=== PATIENT | male | born 1960 | race Caucasian/White ===

== ENCOUNTER 2016-10-26 13:33 | Inpatient (IN) | payer BC ==
[2016-10-26] VITALS (200 sets, daily range): BP systolic 94–120; BP diastolic 67–77; PULSE 68–91; TEMP 97.8–97.9; O2SAT 87–97
[~2016-10-26] VITALS: Ht 175.3 cm; Wt 85.2 kg
[~2016-10-26 13:33] MED LIST: ATORVASTATIN; FOSAMAX PO; LIPITOR20 MG PO; LISINOPRIL10 MG PO; NORCO 325 MG-51 TAB PO; OMEGA-3 FISH1200 MG PO; PERCOCET 325 MG1 TA2 PO; PREDNISONE10 MG; RYZOLT100 MG PO
[2016-10-26] MEDS ORDERED: PRINIVIL5 MG PO (14:02)
[2016-10-26] MEDS ORDERED: OMEGA-3 FISH1000 MG PO (14:03)
[2016-10-26 14:11] LABS: BASO # 0.1 (0.0-0.2); BASO % 0.5 % (0.0-2.0); EOS # 0.2 (0.0-0.7); EOS % 2.2 % (0-4.0); GRAN # 6.7 (1.4-6.5); GRAN % 68.1 % (42.2-75.2); HEMATOCRIT 48.5 % (42.0-52.0); HEMOGLOBIN 16.7 g/dl (13.5-18.0); LYMPH # 2.1 (1.2-3.4); LYMPH % 21.5 % (20.0-51.0); MEAN CELL VOLUME 95 fl (80.0-100.0); MEAN CORPUSCULAR HEMOGLOBIN 33 pg (27.0-31.0); MEAN CORPUSCULAR HGB CONC 34 g/dl (33.0-37.0); MEAN PLATELET VOLUME 11.2 fl (7.4-10.4); MONO # 0.7 (0.1-0.6); MONO % 7.3 % (1.7-9.3); PLATELET COUNT 154 K/mm3 (130-400); REDCELL DISTRIBUTION WIDTH-CV 13.2 % (11.5-14.5); WHITE BLOOD COUNT 9.9 K/mm3 (4.8-10.8)
[2016-10-26 14:35] LABS: ADJUSTED CALCIUM 9.7 mg/dL (8.4-10.2); ALBUMIN 4.3 gm/dL (3.5-5.0); BILIRUBIN,TOTAL 0.7 mg/dL (0.0-1.0); CALCIUM 9.9 mg/dL (8.4-10.2); CREATININE, serum 1.53 mg/dL (0.66-1.25); POTASSIUM 4.4 mmol/L (3.4-5.0); TOTAL PROTEIN 7.6 gm/dL (6.4-8.2)
[2016-10-26] MEDS ORDERED: CALCIUM 600 PLU1 TAB PO (16:11)
[2016-10-26] MEDS ORDERED: VITAMIN D31000 I1 PO (16:11)
[2016-10-27] VITALS (380 sets, daily range): BP systolic 101–135; BP diastolic 68–79; PULSE 85–104; TEMP 98–98.9; O2SAT 80–97
[2016-10-27 06:43] LABS: CALCIUM 8.6 mg/dL (8.4-10.2); CREATININE, serum 2.18 mg/dL (0.66-1.25); POTASSIUM 5.1 mmol/L (3.4-5.0)
[2016-10-27 06:44] LABS: BASO % 0.3 % (0.0-2.0); EOS % 0.1 % (0-4.0); GRAN # 12.3 (1.4-6.5); GRAN % 83.4 % (42.2-75.2); HEMATOCRIT 43.7 % (42.0-52.0); LYMPH % 6.5 % (20.0-51.0); MEAN CELL VOLUME 98 fl (80.0-100.0); MEAN CORPUSCULAR HEMOGLOBIN 33 pg (27.0-31.0); MEAN CORPUSCULAR HGB CONC 34 g/dl (33.0-37.0); MEAN PLATELET VOLUME 11.5 fl (7.4-10.4); MONO # 1.4 (0.1-0.6); MONO % 9.4 % (1.7-9.3); PLATELET COUNT 153 K/mm3 (130-400); RED BLOOD COUNT 4.45 M/mm3 (4.20-5.60); REDCELL DISTRIBUTION WIDTH-CV 13.7 % (11.5-14.5); WHITE BLOOD COUNT 14.8 K/mm3 (4.8-10.8)
[2016-10-27 06:52] LABS: HEMOGLOBIN 14.7 g/dl (13.5-18.0)
[2016-10-27 15:52] LABS: PH 5 (5-8); SQUAMOUS EPITHELIAL 0-2 /hpf; URINE APPEARANCE Hazy; URINE BACTERIA None Seen /hpf; URINE BILIRUBIN Negative (NEGATIVE); URINE BLOOD Negative (NEGATIVE); URINE COLOR Yellow; URINE GLUCOSE Negative (NEGATIVE); URINE KETONE Negative (NEGATIVE); URINE UROBILINOGEN Negative (NEGATIVE)
[2016-10-28] VITALS (70 sets, daily range): BP systolic 119–141; BP diastolic 62–80; PULSE 83–117; TEMP 98.2–99.3; O2SAT 85–96
[2016-10-28 07:03] LABS: HEMATOCRIT 41.8 % (42.0-52.0); HEMOGLOBIN 14.1 g/dl (13.5-18.0); MEAN CELL VOLUME 97 fl (80.0-100.0); MEAN CORPUSCULAR HEMOGLOBIN 33 pg (27.0-31.0); MEAN CORPUSCULAR HGB CONC 34 g/dl (33.0-37.0); PLATELET COUNT 136 K/mm3 (130-400); RED BLOOD COUNT 4.32 M/mm3 (4.20-5.60); REDCELL DISTRIBUTION WIDTH-CV 13.5 % (11.5-14.5); WHITE BLOOD COUNT 13.2 K/mm3 (4.8-10.8)
[2016-10-28 07:19] LABS: CALCIUM 8.8 mg/dL (8.4-10.2); CREATININE, serum 1.55 mg/dL (0.66-1.25); POTASSIUM 4.1 mmol/L (3.4-5.0)
[2016-10-28 07:29] LABS: PHOSPHOROUS 2.9 mg/dL (2.5-4.5)
[2016-10-28 21:53] LABS: PROT-CREAT RATIO, URINE 0.2 (())
[2016-10-28 23:28] LABS: BASO % 0.3 % (0.0-2.0); EOS # 0.1 (0.0-0.7); EOS % 1.1 % (0-4.0); GRAN # 9.1 (1.4-6.5); GRAN % 78.3 % (42.2-75.2); HEMATOCRIT 40.6 % (42.0-52.0); HEMOGLOBIN 14.1 g/dl (13.5-18.0); LYMPH # 1.3 (1.2-3.4); LYMPH % 10.7 % (20.0-51.0); MEAN CELL VOLUME 94 fl (80.0-100.0); MEAN CORPUSCULAR HEMOGLOBIN 33 pg (27.0-31.0); MEAN CORPUSCULAR HGB CONC 35 g/dl (33.0-37.0); MEAN PLATELET VOLUME 10.9 fl (7.4-10.4); MONO # 1.1 (0.1-0.6); MONO % 9.3 % (1.7-9.3); PLATELET COUNT 129 K/mm3 (130-400); REDCELL DISTRIBUTION WIDTH-CV 13.4 % (11.5-14.5); WHITE BLOOD COUNT 11.7 K/mm3 (4.8-10.8)
[2016-10-28 23:36] LABS: ANION GAP 8 mmol/L (7-16); BLOOD UREA NITROGEN 23 mg/dL (9-20); CALCIUM 9.3 mg/dL (8.4-10.2); CARBON DIOXIDE 28 mmol/L (22-30); CHLORIDE 101 mmol/L (98-107); CREATININE, serum 1.22 mg/dL (0.66-1.25); GLUCOSE 119 mg/dL (74-106); POTASSIUM 3.7 mmol/L (3.4-5.0); SODIUM 136 mmol/L (137-145)
[2016-10-28 23:42] LABS: PARTIAL THROMBOPLASTIN TIME 29.7 SECONDS (26.0-37.0)
[2016-10-28 23:48] LABS: TROPONIN-I < 0.012 ng/mL (0.000-0.034)
[2016-10-29] VITALS (769 sets, daily range): BP systolic 98–136; BP diastolic 70–96; PULSE 98–125; TEMP 97.7–983.1; O2SAT 77–100
[2016-10-29 06:27] LABS: HEMATOCRIT 39.2 % (42.0-52.0); HEMOGLOBIN 13.4 g/dl (13.5-18.0)
[2016-10-29 12:28] LABS: HEMOGLOBIN 12.6 g/dl (13.5-18.0)
[2016-10-29 12:33] LABS: HEMATOCRIT 36.3 % (42.0-52.0)
[2016-10-29 17:29] LABS: HEMATOCRIT 33.7 % (42.0-52.0); HEMOGLOBIN 11.7 g/dl (13.5-18.0)
[2016-10-29 23:39] LABS: HEMATOCRIT 33.1 % (42.0-52.0); HEMOGLOBIN 11.4 g/dl (13.5-18.0)
[2016-10-30] VITALS (506 sets, daily range): BP systolic 101–138; BP diastolic 52–86; PULSE 91–139; TEMP 98.2–99.5; O2SAT 82–100
[2016-10-30 05:00] LABS: MEAN CELL VOLUME 96 fl (80.0-100.0); MEAN CORPUSCULAR HGB CONC 35 g/dl (33.0-37.0); PLATELET COUNT 135 K/mm3 (130-400); REDCELL DISTRIBUTION WIDTH-CV 13.4 % (11.5-14.5); WHITE BLOOD COUNT 14.9 K/mm3 (4.8-10.8)
[2016-10-30 05:02] LABS: HEMATOCRIT 31.5 % (42.0-52.0); HEMOGLOBIN 10.9 g/dl (13.5-18.0); MEAN CORPUSCULAR HEMOGLOBIN 33 pg (27.0-31.0)
[2016-10-30 05:03] LABS: ADD PATHOLOGY DIFF REVIEW NO
[2016-10-30 05:11] LABS: CALCIUM 8.4 mg/dL (8.4-10.2); CREATININE, serum 1.33 mg/dL (0.66-1.25); POTASSIUM 4.2 mmol/L (3.4-5.0)
[2016-10-30 05:17] LABS: BAND 11 % (0-10); BASOPHIL 1 % (0-2); EOSINOPHIL 1 % (0-4); NEUTROPHILS 70 % (42.0-75.2); PLATELET ESTIMATE NORMAL (NORMAL); TOTAL CELLS COUNTED 100
[2016-10-31] VITALS (9 sets, daily range): BP systolic 111–133; BP diastolic 68–83; PULSE 98–107; TEMP 97.9–99.2
[2016-10-31 06:17] LABS: MEAN CELL VOLUME 97 fl (80.0-100.0); MEAN CORPUSCULAR HGB CONC 35 g/dl (33.0-37.0); MEAN PLATELET VOLUME 11.2 fl (7.4-10.4); PLATELET COUNT 151 K/mm3 (130-400); RED BLOOD COUNT 3.05 M/mm3 (4.20-5.60); REDCELL DISTRIBUTION WIDTH-CV 13.5 % (11.5-14.5); WHITE BLOOD COUNT 12.7 K/mm3 (4.8-10.8)
[2016-10-31 06:19] LABS: HEMATOCRIT 29.6 % (42.0-52.0); HEMOGLOBIN 10.2 g/dl (13.5-18.0); MEAN CORPUSCULAR HEMOGLOBIN 33 pg (27.0-31.0)
[2016-10-31 06:26] LABS: ADJUSTED CALCIUM 9.5 mg/dL (8.4-10.2); ALBUMIN 2.9 gm/dL (3.5-5.0); BILIRUBIN,TOTAL 0.9 mg/dL (0.0-1.0); CALCIUM 8.6 mg/dL (8.4-10.2); CREATININE, serum 1.3 mg/dL (0.66-1.25); POTASSIUM 3.9 mmol/L (3.4-5.0); TOTAL PROTEIN 5.8 gm/dL (6.4-8.2)
[2016-11-01] VITALS (638 sets, daily range): BP systolic 106–129; BP diastolic 66–83; PULSE 85–107; TEMP 97.6–97.9; O2SAT 83–100
[2016-11-01 06:10] LABS: MEAN CELL VOLUME 95 fl (80.0-100.0); MEAN CORPUSCULAR HGB CONC 34 g/dl (33.0-37.0); MEAN PLATELET VOLUME 10.7 fl (7.4-10.4); PLATELET COUNT 187 K/mm3 (130-400); RED BLOOD COUNT 3.23 M/mm3 (4.20-5.60); REDCELL DISTRIBUTION WIDTH-CV 13.5 % (11.5-14.5); WHITE BLOOD COUNT 13.1 K/mm3 (4.8-10.8)
[2016-11-01 06:15] LABS: HEMATOCRIT 30.8 % (42.0-52.0); HEMOGLOBIN 10.5 g/dl (13.5-18.0); MEAN CORPUSCULAR HEMOGLOBIN 33 pg (27.0-31.0)
[2016-11-02] VITALS (250 sets, daily range): BP systolic 104–142; BP diastolic 57–81; PULSE 86–99; TEMP 97.4–99.5; O2SAT 84–99
[2016-11-03] VITALS (8 sets, daily range): BP systolic 115–158; BP diastolic 53–84; PULSE 71–88; TEMP 97.5–98.8
[2016-11-03 07:35] LABS: BASO % 0.3 % (0.0-2.0); EOS # 0.4 (0.0-0.7); EOS % 3.4 % (0-4.0); GRAN # 7.9 (1.4-6.5); GRAN % 72.3 % (42.2-75.2); LYMPH # 1.2 (1.2-3.4); LYMPH % 11.3 % (20.0-51.0); MEAN CELL VOLUME 96 fl (80.0-100.0); MEAN CORPUSCULAR HGB CONC 34 g/dl (33.0-37.0); MEAN PLATELET VOLUME 10.7 fl (7.4-10.4); MONO # 1.3 (0.1-0.6); MONO % 11.8 % (1.7-9.3); PLATELET COUNT 195 K/mm3 (130-400); RED BLOOD COUNT 2.96 M/mm3 (4.20-5.60); REDCELL DISTRIBUTION WIDTH-CV 13.4 % (11.5-14.5); WHITE BLOOD COUNT 10.9 K/mm3 (4.8-10.8)
[2016-11-03 08:00] LABS: CALCIUM 8.1 mg/dL (8.4-10.2); CREATININE, serum 1.11 mg/dL (0.66-1.25); POTASSIUM 3.5 mmol/L (3.4-5.0)
[2016-11-03 08:48] LABS: HEMATOCRIT 28.3 % (42.0-52.0); HEMOGLOBIN 9.6 g/dl (13.5-18.0); MEAN CORPUSCULAR HEMOGLOBIN 32 pg (27.0-31.0)
[2016-11-03] MEDS ORDERED: MULTI VITAMINS1 TAB PO (18:08)
[2016-11-03] MEDS ORDERED: VITAMIN D 1001000 IU PO (18:08)
[2016-11-04] VITALS (9 sets, daily range): BP systolic 119–149; BP diastolic 63–90; PULSE 78–92; TEMP 97.8–98.7
[2016-11-05] VITALS (15 sets, daily range): BP systolic 12–142; BP diastolic 63–76; PULSE 80–94; TEMP 97.4–99.1
[2016-11-05 13:45] LABS: HEMATOCRIT 31.6 % (42.0-52.0); HEMOGLOBIN 10.6 g/dl (13.5-18.0)
[2016-11-06] VITALS (7 sets, daily range): BP systolic 107–154; BP diastolic 50–68; PULSE 64–98; TEMP 97.2–98.6
[2016-11-06 07:07] LABS: MEAN CELL VOLUME 96 fl (80.0-100.0); MEAN CORPUSCULAR HGB CONC 33 g/dl (33.0-37.0); MEAN PLATELET VOLUME 10.2 fl (7.4-10.4); PLATELET COUNT 270 K/mm3 (130-400); RED BLOOD COUNT 3.17 M/mm3 (4.20-5.60); REDCELL DISTRIBUTION WIDTH-CV 13.3 % (11.5-14.5); WHITE BLOOD COUNT 17.9 K/mm3 (4.8-10.8)
[2016-11-06 07:26] LABS: ADD PATHOLOGY DIFF REVIEW NO; HEMATOCRIT 30.3 % (42.0-52.0); HEMOGLOBIN 10.1 g/dl (13.5-18.0); MEAN CORPUSCULAR HEMOGLOBIN 32 pg (27.0-31.0)
[2016-11-06 07:36] LABS: CALCIUM 8.1 mg/dL (8.4-10.2); CREATININE, serum 1.24 mg/dL (0.66-1.25); POTASSIUM 4.1 mmol/L (3.4-5.0)
[2016-11-06 10:31] LABS: BAND 3 % (0-10); EOSINOPHIL 1 % (0-4); NEUTROPHILS 84 % (42.0-75.2); TOTAL CELLS COUNTED 100
[2016-11-07] VITALS (7 sets, daily range): BP systolic 101–136; BP diastolic 56–71; PULSE 64–98; TEMP 97.5–99.4
[2016-11-08 02:15] VITALS: BP 128/66; PULSE 82; TEMP 97.2
[2016-11-08 05:15] VITALS: BP 128/70; PULSE 76; TEMP 99.1
[2016-11-08 07:28] LABS: BASO # 0.1 (0.0-0.2); BASO % 0.4 % (0.0-2.0); EOS # 0.4 (0.0-0.7); EOS % 2.9 % (0-4.0); GRAN # 10.1 (1.4-6.5); GRAN % 73.2 % (42.2-75.2); LYMPH # 1.8 (1.2-3.4); MEAN CELL VOLUME 97 fl (80.0-100.0); MEAN CORPUSCULAR HGB CONC 33 g/dl (33.0-37.0); MEAN PLATELET VOLUME 10.1 fl (7.4-10.4); MONO # 1.2 (0.1-0.6); MONO % 8.6 % (1.7-9.3); PLATELET COUNT 212 K/mm3 (130-400); RED BLOOD COUNT 3.38 M/mm3 (4.20-5.60); REDCELL DISTRIBUTION WIDTH-CV 13.7 % (11.5-14.5); WHITE BLOOD COUNT 13.8 K/mm3 (4.8-10.8)
[2016-11-08 07:51] LABS: HEMATOCRIT 32.7 % (42.0-52.0); HEMOGLOBIN 10.9 g/dl (13.5-18.0); MEAN CORPUSCULAR HEMOGLOBIN 32 pg (27.0-31.0)
[2016-11-08 10:00] VITALS: BP 129/75; PULSE 80; TEMP 97.2
[2016-11-08 14:05] VITALS: BP 121/57; PULSE 96; TEMP 98
[2016-11-08 17:51] VITALS: BP 109/56; PULSE 84; TEMP 97.9
[2016-11-08 21:27] VITALS: BP 120/68; PULSE 94; TEMP 98.1
[2016-11-09 01:25] VITALS: BP 105/59; PULSE 75; TEMP 98.2
[2016-11-09 05:53] VITALS: BP 118/69; PULSE 85; TEMP 97.5
[2016-11-09 10:00] VITALS: BP 103/58; PULSE 88; TEMP 98.8
[2016-11-09 14:25] VITALS: BP 99/53; PULSE 90; TEMP 97.9
[2016-11-09 18:20] VITALS: BP 103/49; PULSE 89; TEMP 99.7
[2016-11-09 22:15] VITALS: BP 100/48; PULSE 100; TEMP 98.9
[2016-11-10 01:15] VITALS: BP 107/53; PULSE 95; TEMP 99.9
[2016-11-10 05:25] VITALS: BP 110/56; PULSE 98; TEMP 98.9
[2016-11-10 07:46] LABS: MEAN CELL VOLUME 97 fl (80.0-100.0); MEAN CORPUSCULAR HGB CONC 33 g/dl (33.0-37.0); MEAN PLATELET VOLUME 10.3 fl (7.4-10.4); PLATELET COUNT 230 K/mm3 (130-400); RED BLOOD COUNT 3.55 M/mm3 (4.20-5.60)
[2016-11-10 08:08] LABS: ADD PATHOLOGY DIFF REVIEW NO; HEMATOCRIT 34.3 % (42.0-52.0); HEMOGLOBIN 11.3 g/dl (13.5-18.0); MEAN CORPUSCULAR HEMOGLOBIN 32 pg (27.0-31.0); WHITE BLOOD COUNT 24.3 K/mm3 (4.8-10.8)
[2016-11-10 09:02] LABS: BAND 6 % (0-10); BASOPHIL 1 % (0-2); NEUTROPHILS 84 % (42.0-75.2); PLATELET ESTIMATE NORMAL (NORMAL); TOTAL CELLS COUNTED 100
[2016-11-10 09:40] VITALS: BP 103/60; PULSE 95; TEMP 98.2
[2016-11-10 14:17] VITALS: BP 105/56; PULSE 96; TEMP 100.3
[2016-11-10 17:16] VITALS: BP 104/56; PULSE 96; TEMP 100.1
[2016-11-10 17:20] LABS: INR 1.3 (0.8-3.0); PROTHROMBIN TIME 14.8 SECONDS (9.7-12.8)
[2016-11-10 17:24] LABS: CREATININE, serum 1.3 mg/dL (0.66-1.25)
[2016-11-10 21:57] VITALS: BP 123/67; PULSE 80; TEMP 98.5
[2016-11-11] VITALS (11 sets, daily range): BP systolic 87–112; BP diastolic 51–72; PULSE 62–109; TEMP 98.2–99.1
[2016-11-11 07:36] LABS: MEAN CELL VOLUME 97 fl (80.0-100.0); MEAN CORPUSCULAR HGB CONC 33 g/dl (33.0-37.0); MEAN PLATELET VOLUME 10.2 fl (7.4-10.4); PLATELET COUNT 227 K/mm3 (130-400); RED BLOOD COUNT 3.33 M/mm3 (4.20-5.60); REDCELL DISTRIBUTION WIDTH-CV 13.9 % (11.5-14.5)
[2016-11-11 07:44] LABS: CALCIUM 8.2 mg/dL (8.4-10.2); CREATININE, serum 1.32 mg/dL (0.66-1.25); POTASSIUM 3.9 mmol/L (3.4-5.0)
[2016-11-11 08:03] LABS: HEMATOCRIT 32.2 % (42.0-52.0); HEMOGLOBIN 10.5 g/dl (13.5-18.0); MEAN CORPUSCULAR HEMOGLOBIN 32 pg (27.0-31.0); WHITE BLOOD COUNT 24.2 K/mm3 (4.8-10.8)
[2016-11-11 08:04] LABS: ADD PATHOLOGY DIFF REVIEW NO
[2016-11-11 09:31] LABS: BAND 7 % (0-10); EOSINOPHIL 1 % (0-4); MYELOCYTE 1 % (0-0); NEUTROPHILS 78 % (42.0-75.2); PLATELET ESTIMATE NORMAL (NORMAL)
[2016-11-11 09:36] LABS: ANISOCYTOSIS 1+; POLYCHROMASIA 1+; TOXIC GRANULATION PRESENT
[2016-11-11 09:37] LABS: TOTAL CELLS COUNTED 100
[2016-11-12 02:00] VITALS: BP 103/55; PULSE 83; TEMP 97.8
[2016-11-12 06:17] VITALS: BP 110/61; PULSE 81; TEMP 97.7
[2016-11-12 09:06] LABS: MEAN CELL VOLUME 96 fl (80.0-100.0); MEAN CORPUSCULAR HGB CONC 33 g/dl (33.0-37.0); MEAN PLATELET VOLUME 10.2 fl (7.4-10.4); PLATELET COUNT 248 K/mm3 (130-400); RED BLOOD COUNT 3.33 M/mm3 (4.20-5.60); REDCELL DISTRIBUTION WIDTH-CV 13.8 % (11.5-14.5); WHITE BLOOD COUNT 18.4 K/mm3 (4.8-10.8)
[2016-11-12 09:07] VITALS: BP 100/55; PULSE 50; TEMP 98
[2016-11-12 09:08] LABS: ADD PATHOLOGY DIFF REVIEW NO; HEMATOCRIT 31.9 % (42.0-52.0); HEMOGLOBIN 10.4 g/dl (13.5-18.0); MEAN CORPUSCULAR HEMOGLOBIN 31 pg (27.0-31.0)
[2016-11-12 09:20] LABS: CALCIUM 8.8 mg/dL (8.4-10.2); CREATININE, serum 1.3 mg/dL (0.66-1.25); POTASSIUM 4.1 mmol/L (3.4-5.0)
[2016-11-12 09:41] LABS: METAMYELOCYTE 2 % (0-0); NEUTROPHILS 88 % (42.0-75.2); TOTAL CELLS COUNTED 100
[2016-11-12 13:42] VITALS: BP 94/56; PULSE 90; TEMP 98.2
[2016-11-12 17:33] VITALS: BP 110/55; PULSE 93; TEMP 98.8
[2016-11-12 22:19] VITALS: BP 115/64; PULSE 76; TEMP 98.5
[2016-11-13 05:47] VITALS: BP 117/62; PULSE 88; TEMP 98.6
[2016-11-13 10:00] VITALS: BP 106/52; PULSE 88; TEMP 98.2
[2016-11-13] MEDS ORDERED: ASPIRIN 32325 MG/TAB PO (11:29)
[2016-11-13] MEDS ORDERED: CORDARONE200 MG/TAB PO (11:36)
[2016-11-13] MEDS ORDERED: COLACE 100100 MG/CAP PO (11:37)
[2016-11-13] MEDS ORDERED: NORCO 325 MG-7.1 TAB PO (11:38)
[2016-11-13] MEDS ORDERED: PACERONE400 MG PO (12:14)
[2016-11-13 12:56] VITALS: BP 108/58; PULSE 93; TEMP 98.5
== END 2016-11-13 15:00 | disposition home or self-care (01) | DRG 163 ==
LOC: COL.ER 13:33 → ICU 15:37 → SURG 15:37 → IMCU 10-28 22:20 → SURG 10-31 12:40 → ICU 11-01 02:19 → SURG 11-02 12:39
PROVIDERS: Emergency Medicine; Internal Medicine Nephrology; Nurse Anesthetist, Certified Registered; Nurse Practitioner Family; Physician Assistant; Radiology Diagnostic Radiology; Surgery
PROC: 0BCN0ZZ Extirpation of Matter from Right Pleura, Open Approach (ICD-10-PCS; 2016-11-01)
PROC: 0W9900Z Drainage of Right Pleural Cavity with Drainage Device, Open Approach (ICD-10-PCS; 2016-11-01)
PROC: 0BQS4ZZ (ICD-10-PCS; 2016-11-05)
PROC: 0BNN4ZZ Release Right Pleura, Percutaneous Endoscopic Approach (ICD-10-PCS; principal; 2016-11-05 10:00)
PROC: 06H03DZ Insertion of Intraluminal Device into Inferior Vena Cava, Percutaneous Approach (ICD-10-PCS; 2016-11-11)
DX: S22.41XA Multiple fractures of ribs, right side, initial encounter for closed fracture (principal); S27.2XXA Traumatic hemopneumothorax, initial encounter; I26.99 Other pulmonary embolism without acute cor pulmonale; S27.321A Contusion of lung, unilateral, initial encounter; N02.8 Recurrent and persistent hematuria with other morphologic changes; N17.9 Acute kidney failure, unspecified; S27.803A Laceration of diaphragm, initial encounter; J98.11 Atelectasis; D62 Acute posthemorrhagic anemia; V23.4XXA Motorcycle driver injured in collision with car, pick-up truck or van in traffic accident, initial encounter; S42.111A Displaced fracture of body of scapula, right shoulder, initial encounter for closed fracture; I12.9 Hypertensive chronic kidney disease with stage 1 through stage 4 chronic kidney disease, or unspecified chronic kidney disease; N18.3 Chronic kidney disease, stage 3 (moderate); I48.0 Paroxysmal atrial fibrillation
CPT/HCPCS: 99222; 99231-AI; 99232-AI; A7048; A9284; C1751; C1880; J0282; J1100; J1170; J1644; J2250; J2270; J2405; J2704; J3010; J7030; J7050; J7060; Q9967

== ENCOUNTER 2016-11-19 23:55 | Inpatient (IN) | payer BC ==
[~2016-11-19] VITALS: Ht 175.3 cm; Wt 85.2 kg
[~2016-11-19 23:55] MED LIST changes: +ASPIRIN 32325 MG/TAB PO; +CALCIUM 600 PLU1 TAB PO; +COLACE 100100 MG/CAP PO; +CORDARONE200 MG/TAB PO; +MULTI VITAMINS1 TAB PO; +NORCO 325 MG-7.1 TAB PO; +OMEGA-3 FISH1000 MG PO; +PACERONE400 MG PO; +PRINIVIL5 MG PO; +VITAMIN D 1001000 IU PO; +VITAMIN D31000 I1 PO
[2016-11-20 00:52] LABS: BASO # 0.1 (0.0-0.2); BASO % 0.4 % (0.0-2.0); EOS # 0.2 (0.0-0.7); EOS % 1.9 % (0-4.0); GRAN # 9.4 (1.4-6.5); GRAN % 79.5 % (42.2-75.2); LYMPH # 1.4 (1.2-3.4); MEAN CELL VOLUME 92 fl (80.0-100.0); MEAN CORPUSCULAR HGB CONC 33 g/dl (33.0-37.0); MONO # 0.6 (0.1-0.6); MONO % 5.4 % (1.7-9.3); PLATELET COUNT 370 K/mm3 (130-400); RED BLOOD COUNT 3.39 M/mm3 (4.20-5.60); WHITE BLOOD COUNT 11.8 K/mm3 (4.8-10.8)
[2016-11-20 00:57] LABS: HEMATOCRIT 31.3 % (42.0-52.0); HEMOGLOBIN 10.4 g/dl (13.5-18.0); MEAN CORPUSCULAR HEMOGLOBIN 31 pg (27.0-31.0)
[2016-11-20 01:05] LABS: ADJUSTED CALCIUM 9.2 mg/dL (8.4-10.2); ALBUMIN 3.1 gm/dL (3.5-5.0); BILIRUBIN,TOTAL 0.6 mg/dL (0.0-1.0); CALCIUM 8.5 mg/dL (8.4-10.2); CREATININE, serum 1.81 mg/dL (0.66-1.25); POTASSIUM 4.2 mmol/L (3.4-5.0); TOTAL PROTEIN 7.5 gm/dL (6.4-8.2)
[2016-11-20 01:38] LABS: C-REACTIVE PROTEIN 17.1 mg/dL (0.0-0.9)
[2016-11-20] MEDS ORDERED: VITAMIN D1000 IU PO (02:30)
[2016-11-20] MEDS ORDERED: PRINIVIL2.5 MG PO (02:30)
[2016-11-20 02:47] VITALS: BP 127/71; PULSE 82; TEMP 98.5
[2016-11-20 05:48] VITALS: BP 110/66; PULSE 78; TEMP 98.1
[2016-11-20 09:08] VITALS: BP 119/70; PULSE 84; TEMP 98.2
[2016-11-20 14:02] VITALS: BP 114/59; PULSE 54; TEMP 98.2
[2016-11-20 18:03] VITALS: BP 104/61; PULSE 93; TEMP 99.1
[2016-11-20 21:24] VITALS: BP 120/65; PULSE 82; TEMP 99
[2016-11-21 02:19] VITALS: BP 130/66; PULSE 87; TEMP 98.8
[2016-11-21 05:44] VITALS: BP 122/66; PULSE 86; TEMP 98.8
[2016-11-21 09:49] VITALS: BP 124/61; PULSE 78; TEMP 98
[2016-11-21 14:07] LABS: PH 5 (5-8); SQUAMOUS EPITHELIAL None Seen /hpf; URINE APPEARANCE Cloudy; URINE BACTERIA Rare /hpf; URINE BILIRUBIN Negative (NEGATIVE); URINE BLOOD 1+ (NEGATIVE); URINE COLOR Yellow; URINE GLUCOSE Negative (NEGATIVE); URINE KETONE Negative (NEGATIVE); URINE RBC 0-2 /hpf; URINE UROBILINOGEN Negative (NEGATIVE); URINE WBC 0-2 /hpf
[2016-11-21 14:12] VITALS: BP 125/66; PULSE 84; TEMP 98.4
[2016-11-21 15:03] LABS: BASO % 0.5 % (0.0-2.0); EOS # 0.2 (0.0-0.7); EOS % 2.4 % (0-4.0); GRAN # 6.4 (1.4-6.5); HEMATOCRIT 29.5 % (42.0-52.0); HEMOGLOBIN 9.5 g/dl (13.5-18.0); LYMPH # 1.1 (1.2-3.4); LYMPH % 12.6 % (20.0-51.0); MEAN CELL VOLUME 92 fl (80.0-100.0); MEAN CORPUSCULAR HEMOGLOBIN 30 pg (27.0-31.0); MEAN CORPUSCULAR HGB CONC 32 g/dl (33.0-37.0); MEAN PLATELET VOLUME 9.7 fl (7.4-10.4); MONO # 0.7 (0.1-0.6); MONO % 7.8 % (1.7-9.3); PLATELET COUNT 331 K/mm3 (130-400); REDCELL DISTRIBUTION WIDTH-CV 14.9 % (11.5-14.5); WHITE BLOOD COUNT 8.4 K/mm3 (4.8-10.8)
[2016-11-21 15:12] LABS: ADJUSTED CALCIUM 9.5 mg/dL (8.4-10.2); ALBUMIN 2.7 gm/dL (3.5-5.0); BILIRUBIN,TOTAL 0.5 mg/dL (0.0-1.0); CALCIUM 8.5 mg/dL (8.4-10.2); CREATININE, serum 1.45 mg/dL (0.66-1.25); POTASSIUM 4.1 mmol/L (3.4-5.0); TOTAL PROTEIN 6.9 gm/dL (6.4-8.2)
[2016-11-21 18:47] VITALS: BP 130/66; PULSE 93; TEMP 99.2
[2016-11-21 21:25] VITALS: BP 131/71; PULSE 94; TEMP 98.6
[2016-11-22 05:46] VITALS: BP 118/56; PULSE 91; TEMP 98.5
[2016-11-22 08:21] LABS: BASO % 0.4 % (0.0-2.0); EOS # 0.2 (0.0-0.7); EOS % 2.9 % (0-4.0); GRAN % 72.4 % (42.2-75.2); LYMPH # 1.3 (1.2-3.4); LYMPH % 15.3 % (20.0-51.0); MEAN CELL VOLUME 91 fl (80.0-100.0); MEAN CORPUSCULAR HGB CONC 33 g/dl (33.0-37.0); MEAN PLATELET VOLUME 9.9 fl (7.4-10.4); MONO # 0.7 (0.1-0.6); MONO % 8.4 % (1.7-9.3); PLATELET COUNT 336 K/mm3 (130-400); RED BLOOD COUNT 3.16 M/mm3 (4.20-5.60); REDCELL DISTRIBUTION WIDTH-CV 15.1 % (11.5-14.5); WHITE BLOOD COUNT 8.3 K/mm3 (4.8-10.8)
[2016-11-22 08:32] LABS: HEMATOCRIT 28.7 % (42.0-52.0); HEMOGLOBIN 9.4 g/dl (13.5-18.0); MEAN CORPUSCULAR HEMOGLOBIN 30 pg (27.0-31.0)
[2016-11-22 08:55] LABS: ADJUSTED CALCIUM 9.9 mg/dL (8.4-10.2); ALBUMIN 2.7 gm/dL (3.5-5.0); BILIRUBIN,TOTAL 0.4 mg/dL (0.0-1.0); CALCIUM 8.9 mg/dL (8.4-10.2); CREATININE, serum 1.61 mg/dL (0.66-1.25); POTASSIUM 4.1 mmol/L (3.4-5.0); TOTAL PROTEIN 6.7 gm/dL (6.4-8.2)
[2016-11-22 09:37] VITALS: BP 135/93; PULSE 87; TEMP 98
[2016-11-22 13:33] VITALS: BP 133/72; PULSE 84; TEMP 98.5
[2016-11-22 17:59] VITALS: BP 130/80; PULSE 104; TEMP 98.3
[2016-11-22 21:18] VITALS: BP 120/67; PULSE 95; TEMP 97.8
[2016-11-23 02:28] LABS: PROT-CREAT RATIO, URINE 0.3 (())
[2016-11-23 05:28] VITALS: BP 135/72; PULSE 80; TEMP 98
[2016-11-23 07:16] VITALS: BP 127/70; PULSE 80; TEMP 97.4
[2016-11-23 08:45] LABS: BASO % 0.4 % (0.0-2.0); EOS # 0.2 (0.0-0.7); EOS % 1.6 % (0-4.0); GRAN % 71.1 % (42.2-75.2); LYMPH # 1.8 (1.2-3.4); LYMPH % 17.7 % (20.0-51.0); MEAN CELL VOLUME 90 fl (80.0-100.0); MEAN CORPUSCULAR HGB CONC 33 g/dl (33.0-37.0); MONO # 0.8 (0.1-0.6); MONO % 8.4 % (1.7-9.3); PLATELET COUNT 346 K/mm3 (130-400); RED BLOOD COUNT 3.18 M/mm3 (4.20-5.60); REDCELL DISTRIBUTION WIDTH-CV 15.1 % (11.5-14.5); WHITE BLOOD COUNT 9.9 K/mm3 (4.8-10.8)
[2016-11-23 08:50] LABS: HEMATOCRIT 28.6 % (42.0-52.0); HEMOGLOBIN 9.4 g/dl (13.5-18.0); MEAN CORPUSCULAR HEMOGLOBIN 30 pg (27.0-31.0)
[2016-11-23 09:10] LABS: ADJUSTED CALCIUM 10.2 mg/dL (8.4-10.2); ALBUMIN 2.8 gm/dL (3.5-5.0); BILIRUBIN,TOTAL 0.5 mg/dL (0.0-1.0); CALCIUM 9.2 mg/dL (8.4-10.2); CREATININE, serum 1.66 mg/dL (0.66-1.25); POTASSIUM 3.8 mmol/L (3.4-5.0)
[2016-11-23 10:59] VITALS: BP 122/71; PULSE 76; TEMP 97.1
[2016-11-23] MEDS ORDERED: ZYVOX 600MG600 MG PO (13:42)
[2016-11-23] MEDS ORDERED: PREDNISONE10 MG PO (13:43)
== END 2016-11-23 14:30 | disposition home or self-care (01) | DRG 863 ==
LOC: COL.ER 23:55 → SURG 11-20 01:36
PROVIDERS: Emergency Medicine; Internal Medicine; Internal Medicine Nephrology
PROC: 0HBLXZX Excision of Left Lower Leg Skin, External Approach, Diagnostic (ICD-10-PCS; principal; 2016-11-22)
DX: T81.4XXA Infection following a procedure, initial encounter (principal); L02.213 Cutaneous abscess of chest wall; N02.8 Recurrent and persistent hematuria with other morphologic changes; N17.9 Acute kidney failure, unspecified; J90 Pleural effusion, not elsewhere classified; L95.8 Other vasculitis limited to the skin; I48.91 Unspecified atrial fibrillation; I10 Essential (primary) hypertension; B95.62 Methicillin resistant Staphylococcus aureus infection as the cause of diseases classified elsewhere
CPT/HCPCS: J0696; J1170; J1644; J3370; J7030; J7050; J7512

== ENCOUNTER 2016-12-22 15:20 | Inpatient (IN) | payer BC ==
[~2016-12-22] VITALS: Ht 175.3 cm; Wt 87.3 kg
[~2016-12-22 15:20] MED LIST changes: +PREDNISONE10 MG PO; +PRINIVIL2.5 MG PO; +VITAMIN D1000 IU PO; +ZYVOX 600MG600 MG PO
[2016-12-22 15:58] LABS: BASO % 0.5 % (0.0-2.0); EOS # 0.3 (0.0-0.7); EOS % 4.4 % (0-4.0); GRAN # 3.9 (1.4-6.5); GRAN % 58.9 % (42.2-75.2); HEMATOCRIT 37.5 % (42.0-52.0); HEMOGLOBIN 11.9 g/dl (13.5-18.0); LYMPH # 1.7 (1.2-3.4); LYMPH % 25.2 % (20.0-51.0); MEAN CELL VOLUME 93 fl (80.0-100.0); MEAN CORPUSCULAR HEMOGLOBIN 29 pg (27.0-31.0); MEAN CORPUSCULAR HGB CONC 32 g/dl (33.0-37.0); MEAN PLATELET VOLUME 10.5 fl (7.4-10.4); MONO # 0.7 (0.1-0.6); MONO % 10.7 % (1.7-9.3); PLATELET COUNT 174 K/mm3 (130-400); RED BLOOD COUNT 4.05 M/mm3 (4.20-5.60); WHITE BLOOD COUNT 6.6 K/mm3 (4.8-10.8)
[2016-12-22 16:06] LABS: CALCIUM 9.2 mg/dL (8.4-10.2); POTASSIUM 4.7 mmol/L (3.4-5.0)
[2016-12-22 16:13] LABS: CREATININE, serum 3.98 mg/dL (0.66-1.25)
[2016-12-22 17:37] VITALS: BP 119/74; PULSE 90; TEMP 97.9
[2016-12-22 22:00] LABS: PROTHROMBIN TIME 11.4 SECONDS (9.7-12.8)
[2016-12-22 22:04] LABS: CREATININE, serum 3.75 mg/dL (0.66-1.25)
[2016-12-22 22:15] LABS: FRACTIONAL EXCRETION OF NA+ 2.1 %
[2016-12-22 22:59] VITALS: BP 114/64; PULSE 86; TEMP 98.4
[2016-12-23] VITALS (11 sets, daily range): BP systolic 110–141; BP diastolic 57–81; PULSE 70–100; TEMP 97.8–98.5
[2016-12-23 08:05] LABS: BASO # 0.1 (0.0-0.2); BASO % 1.3 % (0.0-2.0); EOS # 0.4 (0.0-0.7); EOS % 7.2 % (0-4.0); GRAN # 2.4 (1.4-6.5); GRAN % 43.1 % (42.2-75.2); LYMPH # 1.9 (1.2-3.4); LYMPH % 33.4 % (20.0-51.0); MEAN CELL VOLUME 93 fl (80.0-100.0); MEAN CORPUSCULAR HGB CONC 32 g/dl (33.0-37.0); MEAN PLATELET VOLUME 10.9 fl (7.4-10.4); MONO # 0.8 (0.1-0.6); MONO % 14.3 % (1.7-9.3); PLATELET COUNT 168 K/mm3 (130-400); RED BLOOD COUNT 3.73 M/mm3 (4.20-5.60); REDCELL DISTRIBUTION WIDTH-CV 17.2 % (11.5-14.5); WHITE BLOOD COUNT 5.5 K/mm3 (4.8-10.8)
[2016-12-23 08:16] LABS: ALBUMIN 3.1 gm/dL (3.5-5.0); CALCIUM 8.9 mg/dL (8.4-10.2); CREATININE, serum 3.66 mg/dL (0.66-1.25); PHOSPHOROUS 4.6 mg/dL (2.5-4.5); POTASSIUM 4.6 mmol/L (3.4-5.0)
[2016-12-23 08:41] LABS: HEMATOCRIT 34.6 % (42.0-52.0); HEMOGLOBIN 11.1 g/dl (13.5-18.0); MEAN CORPUSCULAR HEMOGLOBIN 30 pg (27.0-31.0)
[2016-12-23 20:17] LABS: PH 6 (5-8); SQUAMOUS EPITHELIAL 0-2 /hpf; URINE APPEARANCE Hazy; URINE BACTERIA None Seen /hpf; URINE BILIRUBIN Negative (NEGATIVE); URINE BLOOD 3+ (NEGATIVE); URINE COLOR Yellow; URINE GLUCOSE Negative (NEGATIVE); URINE KETONE Negative (NEGATIVE); URINE RBC >50 /hpf; URINE UROBILINOGEN Negative (NEGATIVE)
[2016-12-23 22:08] LABS: PROT-CREAT RATIO, URINE 1.7 (())
[2016-12-24 04:56] VITALS: BP 110/62; PULSE 77; TEMP 98.2
[2016-12-24 06:58] LABS: BASO # 0.1 (0.0-0.2); BASO % 0.7 % (0.0-2.0); EOS # 0.1 (0.0-0.7); EOS % 0.8 % (0-4.0); GRAN # 4.8 (1.4-6.5); GRAN % 64.6 % (42.2-75.2); LYMPH # 1.5 (1.2-3.4); LYMPH % 20.9 % (20.0-51.0); MEAN CELL VOLUME 91 fl (80.0-100.0); MEAN CORPUSCULAR HGB CONC 32 g/dl (33.0-37.0); MEAN PLATELET VOLUME 10.7 fl (7.4-10.4); MONO # 0.9 (0.1-0.6); MONO % 12.6 % (1.7-9.3); PLATELET COUNT 187 K/mm3 (130-400); RED BLOOD COUNT 3.58 M/mm3 (4.20-5.60); REDCELL DISTRIBUTION WIDTH-CV 16.4 % (11.5-14.5); WHITE BLOOD COUNT 7.4 K/mm3 (4.8-10.8)
[2016-12-24 07:27] LABS: CALCIUM 8.4 mg/dL (8.4-10.2); CREATININE, serum 3.22 mg/dL (0.66-1.25); PHOSPHOROUS 3.9 mg/dL (2.5-4.5); POTASSIUM 4.6 mmol/L (3.4-5.0)
[2016-12-24 07:45] LABS: HEMATOCRIT 32.7 % (42.0-52.0); HEMOGLOBIN 10.6 g/dl (13.5-18.0); MEAN CORPUSCULAR HEMOGLOBIN 30 pg (27.0-31.0)
[2016-12-24 08:07] VITALS: BP 117/70; PULSE 70; TEMP 98
[2016-12-24 11:10] VITALS: BP 118/69; PULSE 75; TEMP 98.1
[2016-12-24] MEDS ORDERED: FOSAMAX 35MG35 MG PO (13:28)
[2016-12-24] MEDS ORDERED: PREDNISONE20 MG PO (13:30)
[2016-12-24] MEDS ORDERED: VITAMIN D31000 IU PO (13:32)
[2016-12-24] MEDS ORDERED: OSCAL 500 TAB500 MG PO (13:32)
== END 2016-12-24 14:16 | disposition home or self-care (01) | DRG 684 ==
LOC: COL.LAB 15:20 → MEDICAL 17:21
PROVIDERS: Internal Medicine Nephrology
PROC: 0TB13ZX Excision of Left Kidney, Percutaneous Approach, Diagnostic (ICD-10-PCS; principal; 2016-12-23)
DX: N17.0 Acute kidney failure with tubular necrosis (principal); N02.8 Recurrent and persistent hematuria with other morphologic changes; I48.91 Unspecified atrial fibrillation
CPT/HCPCS: J7030; J7512

== ENCOUNTER → 2017-01-04 | Outpatient (CLI) | payer BC ==
[~2017-01-04] MED LIST changes: +FOSAMAX 35MG35 MG PO; +OSCAL 500 TAB500 MG PO; +PREDNISONE20 MG PO; +VITAMIN D31000 IU PO; +ZESTRIL 5MG5 MG PO
== END ==
LOC: COL.RAD 12:44
DX: R31.0 Gross hematuria (principal); K80.20 Calculus of gallbladder without cholecystitis without obstruction

== ENCOUNTER → 2017-01-11 | Outpatient (REF) | LOC: WSOH 14:02 | DX: Z01.89 Encounter for other specified special examinations (principal) ==

== ENCOUNTER → 2017-01-20 | Outpatient (REF) | LOC: WSOH 15:30 | DX: Z02.89 Encounter for other administrative examinations (principal) ==

== ENCOUNTER → 2017-05-09 | Outpatient (CLI) | payer BC | LOC: COL.RAD 08:00 | DX: M47.817 Spondylosis without myelopathy or radiculopathy, lumbosacral region (principal); M48.07 Spinal stenosis, lumbosacral region; N28.1 Cyst of kidney, acquired; R53.1 Weakness; M79.604 Pain in right leg; M79.605 Pain in left leg ==

== ENCOUNTER 2017-05-10 12:23 | Inpatient (IN) | payer BC ==
[~2017-05-10] VITALS: Ht 175.3 cm; Wt 93.0 kg
[~2017-05-10 12:23] MED LIST changes: -ZESTRIL 5MG5 MG PO
[2017-05-10] MEDS ORDERED: ZESTRIL 5MG5 MG PO (12:54)
[2017-05-10 13:03] LABS: BASO % 0.2 % (0.0-2.0); EOS # 0.1 (0.0-0.7); EOS % 0.4 % (0-4.0); GRAN # 12.9 (1.4-6.5); GRAN % 76.2 % (42.2-75.2); HEMOGLOBIN 12.5 g/dl (13.5-18.0); LYMPH # 2.3 (1.2-3.4); LYMPH % 13.4 % (20.0-51.0); MEAN CELL VOLUME 100 fl (80.0-100.0); MEAN CORPUSCULAR HEMOGLOBIN 34 pg (27.0-31.0); MEAN CORPUSCULAR HGB CONC 34 g/dl (33.0-37.0); MEAN PLATELET VOLUME 10.9 fl (7.4-10.4); MONO # 1.5 (0.1-0.6); MONO % 8.6 % (1.7-9.3); PLATELET COUNT 84 K/mm3 (130-400); RED BLOOD COUNT 3.66 M/mm3 (4.20-5.60); REDCELL DISTRIBUTION WIDTH-CV 15.1 % (11.5-14.5); WHITE BLOOD COUNT 16.9 K/mm3 (4.8-10.8)
[2017-05-10 13:05] LABS: HEMATOCRIT 36.6 % (42.0-52.0)
[2017-05-10 13:08] LABS: PROTHROMBIN TIME 11.3 SECONDS (9.7-12.8)
[2017-05-10 13:14] LABS: CALCIUM 10.6 mg/dL (8.4-10.2); CREATININE, serum 2.57 mg/dL (0.66-1.25); POTASSIUM 4.7 mmol/L (3.4-5.0)
[2017-05-10 14:59] VITALS: BP 119/66; PULSE 105; TEMP 98.3
[2017-05-10 19:33] VITALS: BP 101/64; PULSE 104; TEMP 99.2
[2017-05-10 19:47] LABS: PH 5 (5-8); SQUAMOUS EPITHELIAL None Seen /hpf; URINE APPEARANCE Clear; URINE BACTERIA None Seen /hpf; URINE BILIRUBIN Negative (NEGATIVE); URINE BLOOD 2+ (NEGATIVE); URINE COLOR Yellow; URINE GLUCOSE Negative (NEGATIVE); URINE KETONE Negative (NEGATIVE); URINE UROBILINOGEN Negative (NEGATIVE); URINE WBC 0-2 /hpf
[2017-05-10 19:56] LABS: URINE PROTEIN:CREAT RATIO 0.41 (0.00-0.14)
[2017-05-10 23:17] VITALS: BP 114/62; PULSE 110; TEMP 99.1
[2017-05-11 03:18] VITALS: BP 107/64; PULSE 100; TEMP 98.6
[2017-05-11 08:11] VITALS: BP 101/56; PULSE 103; TEMP 98.6
[2017-05-11 08:33] LABS: BASO % 0.2 % (0.0-2.0); EOS # 0.1 (0.0-0.7); EOS % 0.4 % (0-4.0); GRAN # 12.8 (1.4-6.5); GRAN % 80.7 % (42.2-75.2); LYMPH # 1.4 (1.2-3.4); LYMPH % 8.7 % (20.0-51.0); MEAN CELL VOLUME 101 fl (80.0-100.0); MEAN CORPUSCULAR HGB CONC 34 g/dl (33.0-37.0); MEAN PLATELET VOLUME 11.5 fl (7.4-10.4); MONO # 1.4 (0.1-0.6); MONO % 8.6 % (1.7-9.3); PLATELET COUNT 85 K/mm3 (130-400); RED BLOOD COUNT 3.48 M/mm3 (4.20-5.60); REDCELL DISTRIBUTION WIDTH-CV 15.4 % (11.5-14.5); WHITE BLOOD COUNT 15.9 K/mm3 (4.8-10.8)
[2017-05-11 08:34] LABS: HEMOGLOBIN 11.8 g/dl (13.5-18.0); MEAN CORPUSCULAR HEMOGLOBIN 34 pg (27.0-31.0)
[2017-05-11 08:44] LABS: ADJUSTED CALCIUM 9.9 mg/dL (8.4-10.2); ALBUMIN 3.9 gm/dL (3.5-5.0); BILIRUBIN,TOTAL 0.6 mg/dL (0.0-1.0); CALCIUM 9.8 mg/dL (8.4-10.2); CREATININE, serum 2.45 mg/dL (0.66-1.25); POTASSIUM 4.6 mmol/L (3.4-5.0); TOTAL PROTEIN 6.5 gm/dL (6.4-8.2)
[2017-05-11 11:34] VITALS: BP 114/69; PULSE 110; TEMP 98.2
[2017-05-11 12:16] VITALS: BP 114/69; PULSE 110; TEMP 98.2
[2017-05-12 00:55] LABS: HOMOCYSTEINE 18.1 umol/L (5.5-16.2)
[2017-05-12 07:56] LABS: FACTOR V LEIDEN MUTATION B Negative (Negative); PT G20210A MUTATION B Negative (Negative)
[2017-05-12 13:03] LABS: PROTEIN C ACTIVITY 159 % (70-150)
[2017-05-12 14:16] LABS: FACTOR VIII 178 % (50-150)
[2017-05-13 18:50] LABS: BETA-2 GPI IGG AABS <9.4 U/mL (()); BETA-2 GPI IGM AABS <9.4 U/mL (())
[2017-05-14 10:01] LABS: PROTEIN S ACTIVITY 163 % (65-149)
[2017-05-15 11:39] LABS: .ANTICARDIOLIPIN IGG <9.4 GPL (()); .ANTICARDIOLIPIN IGM <9.4 MPL (())
[2017-05-15 12:31] LABS: LUPUS ANTICOAGULANT PT 10.7 sec (()); LUPUS ANTICOAGULANT PTT 28 sec (26 - 36)
[2017-05-15 13:00] LABS: LUPUS ANTICOAGULANT DRVVT 0.9 ratio (())
== END 2017-05-11 13:20 | disposition home or self-care (01) | DRG 300 ==
LOC: COL.ER 12:23 → MEDICAL 13:45
PROVIDERS: Emergency Medicine; Internal Medicine; Internal Medicine Nephrology
DX: I82.411 Acute embolism and thrombosis of right femoral vein (principal); N17.9 Acute kidney failure, unspecified; E87.2 Acidosis; N02.8 Recurrent and persistent hematuria with other morphologic changes; I82.421 Acute embolism and thrombosis of right iliac vein; N18.3 Chronic kidney disease, stage 3 (moderate); E78.5 Hyperlipidemia, unspecified; I48.0 Paroxysmal atrial fibrillation; Z86.711 Personal history of pulmonary embolism
CPT/HCPCS: OP; J1170; J7030; J7512

== ENCOUNTER 2017-07-03 15:00 | Outpatient (RCR) | payer BC ==
[~2017-07-03 15:00] MED LIST changes: -OSCAL 500 TAB500 MG PO; +OYSCO 500 + D 51 TAB PO; +PREDNISONE 5MG5 MG PO; -PREDNISONE20 MG PO; +ZESTRIL2.5 MG PO
[2017-07-29] MEDS ORDERED: ELIQUIS 2.5 PO (12:26)
[2017-07-29] MEDS ORDERED: IMURAN 50MG TAB50 MG PO ×2 (12:28→14:47)
[2017-07-29] MEDS ORDERED: LOPRESSOR 225 MG/TAB PO (12:29)
[2017-07-29] MEDS ORDERED: MULTI VITAMINS1 TAB PO (12:29)
[2017-07-29] MEDS ORDERED: PROTONIX 40MG T40 MG PO (12:32)
[2017-08-02] MEDS ORDERED: ELIQUIS 5MG PO (14:11)
[2017-08-02] MEDS ORDERED: CARDIZEM 30MG T30 MG PO (14:11)
== END 2017-08-29 11:19 | disposition home or self-care (01) ==
LOC: MKS.ESL.PT 15:00
DX: I82.403 Acute embolism and thrombosis of unspecified deep veins of lower extremity, bilateral (principal)

== ENCOUNTER 2017-07-29 11:33 | Inpatient (IN) | payer BC ==
[~2017-07-29] VITALS: Ht 175.3 cm; Wt 90.9 kg
[2017-07-29] MEDS ORDERED: ELIQUIS 2.5 PO (12:26)
[2017-07-29] MEDS ORDERED: IMURAN 50MG TAB50 MG PO ×2 (12:28→14:47)
[2017-07-29] MEDS ORDERED: LOPRESSOR 225 MG/TAB PO (12:29)
[2017-07-29] MEDS ORDERED: MULTI VITAMINS1 TAB PO (12:29)
[2017-07-29 12:30] LABS: BASO % 0.3 % (0.0-2.0); EOS # 0.1 (0.0-0.7); EOS % 0.6 % (0-4.0); GRAN # 9.3 (1.4-6.5); GRAN % 88.6 % (42.2-75.2); HEMATOCRIT 43.3 % (42.0-52.0); HEMOGLOBIN 14.7 g/dl (13.5-18.0); LYMPH # 0.4 (1.2-3.4); LYMPH % 3.5 % (20.0-51.0); MEAN CELL VOLUME 97 fl (80.0-100.0); MEAN CORPUSCULAR HEMOGLOBIN 33 pg (27.0-31.0); MEAN CORPUSCULAR HGB CONC 34 g/dl (33.0-37.0); MEAN PLATELET VOLUME 11.3 fl (7.4-10.4); MONO # 0.7 (0.1-0.6); MONO % 6.2 % (1.7-9.3); PLATELET COUNT 112 K/mm3 (130-400); RED BLOOD COUNT 4.45 M/mm3 (4.20-5.60); WHITE BLOOD COUNT 10.5 K/mm3 (4.8-10.8)
[2017-07-29 12:31] LABS: ADJUSTED CALCIUM 9.4 mg/dL (8.4-10.2); ALBUMIN 3.8 gm/dL (3.5-5.0); BILIRUBIN,TOTAL 0.7 mg/dL (0.0-1.0); CALCIUM 9.2 mg/dL (8.4-10.2); CREATININE, serum 1.74 mg/dL (0.66-1.25); POTASSIUM 3.9 mmol/L (3.4-5.0); TOTAL PROTEIN 6.5 gm/dL (6.4-8.2)
[2017-07-29] MEDS ORDERED: PROTONIX 40MG T40 MG PO (12:32)
[2017-07-29 12:46] LABS: COLLECTION METHOD CLEAN CATCH
[2017-07-29 12:47] LABS: INR 1.2 (0.8-3.0); PROTHROMBIN TIME 13.1 SECONDS (9.7-12.8)
[2017-07-29 12:50] LABS: C-REACTIVE PROTEIN 3.2 mg/dL (0.0-0.9); PARTIAL THROMBOPLASTIN TIME 31.3 SECONDS (26.0-37.0)
[2017-07-29 12:58] LABS: MUCOUS Present /lpf; PH 5 (5-8); SQUAMOUS EPITHELIAL None Seen /hpf; URINE APPEARANCE Hazy; URINE BACTERIA None Seen /hpf; URINE BILIRUBIN Negative (NEGATIVE); URINE BLOOD 3+ (NEGATIVE); URINE COLOR Yellow; URINE GLUCOSE Negative (NEGATIVE); URINE KETONE Negative (NEGATIVE); URINE LEUKOCYTE ESTERASE Negative (NEGATIVE); URINE PROTEIN(semi-quant) 2+ (NEGATIVE); URINE RBC 20-50 /hpf; URINE UROBILINOGEN Negative (NEGATIVE); URINE WBC 0-2 /hpf
[2017-07-29 13:04] LABS: INFLUENZA A NEGATIVE; INFLUENZA B NEGATIVE
[2017-07-29 14:37] VITALS: BP 113/65; PULSE 108; TEMP 98.5
[2017-07-29 16:21] VITALS: BP 138/76; PULSE 106; TEMP 98.3
[2017-07-29 19:07] VITALS: TEMP 102.8
[2017-07-30] VITALS (9 sets, daily range): BP systolic 82–164; BP diastolic 56–77; PULSE 60–136; TEMP 99–103.2
[2017-07-30 06:35] LABS: HEMATOCRIT 41.9 % (42.0-52.0); HEMOGLOBIN 14.1 g/dl (13.5-18.0); MEAN CELL VOLUME 98 fl (80.0-100.0); MEAN CORPUSCULAR HEMOGLOBIN 33 pg (27.0-31.0); MEAN CORPUSCULAR HGB CONC 34 g/dl (33.0-37.0); MEAN PLATELET VOLUME 11.7 fl (7.4-10.4); PLATELET COUNT 84 K/mm3 (130-400); RED BLOOD COUNT 4.29 M/mm3 (4.20-5.60); WHITE BLOOD COUNT 11.4 K/mm3 (4.8-10.8)
[2017-07-30 06:36] LABS: ADD PATHOLOGY DIFF REVIEW NO
[2017-07-30 06:54] LABS: CALCIUM 8.4 mg/dL (8.4-10.2); CREATININE, serum 1.9 mg/dL (0.66-1.25); MAGNESIUM 1.4 mg/dL (1.6-2.3); PHOSPHOROUS 2.8 mg/dL (2.5-4.5); POTASSIUM 3.6 mmol/L (3.4-5.0)
[2017-07-30 07:42] LABS: BAND 30 % (0-10); LYMPHOCYTE 7 % (20.0-51.0); NEUTROPHILS 61 % (42.0-75.2); PLATELET ESTIMATE DECREASED (NORMAL); TOTAL CELLS COUNTED 100
[2017-07-30 07:44] LABS: HYPOCHROMIA 1+
[2017-07-31 00:20] LABS: URINE PROTEIN:CREAT RATIO 4.06 (0.00-0.14)
[2017-07-31 00:23] LABS: BUDDING YEAST Present /hpf; MUCOUS Present /lpf; SQUAMOUS EPITHELIAL None Seen /hpf; URINE BACTERIA Rare /hpf; URINE RBC >50 /hpf
[2017-07-31 03:07] VITALS: BP 133/73; PULSE 104; TEMP 99
[2017-07-31 08:14] VITALS: BP 144/85; PULSE 111; TEMP 99.2
[2017-07-31 08:38] LABS: BASO % 0.3 % (0.0-2.0); EOS % 0.5 % (0-4.0); GRAN # 6.3 (1.4-6.5); GRAN % 85.3 % (42.2-75.2); HEMOGLOBIN 12.4 g/dl (13.5-18.0); LYMPH # 0.5 (1.2-3.4); LYMPH % 7.2 % (20.0-51.0); MEAN CELL VOLUME 97 fl (80.0-100.0); MEAN CORPUSCULAR HEMOGLOBIN 33 pg (27.0-31.0); MEAN CORPUSCULAR HGB CONC 34 g/dl (33.0-37.0); MEAN PLATELET VOLUME 12.3 fl (7.4-10.4); MONO # 0.5 (0.1-0.6); MONO % 6.3 % (1.7-9.3); PLATELET COUNT 54 K/mm3 (130-400); RED BLOOD COUNT 3.73 M/mm3 (4.20-5.60); WHITE BLOOD COUNT 7.3 K/mm3 (4.8-10.8)
[2017-07-31 09:01] LABS: ADJUSTED CALCIUM 8.9 mg/dL (8.4-10.2); ALBUMIN 2.7 gm/dL (3.5-5.0); BILIRUBIN,TOTAL 0.5 mg/dL (0.0-1.0); CALCIUM 7.9 mg/dL (8.4-10.2); CREATININE, serum 1.61 mg/dL (0.66-1.25); POTASSIUM 3.3 mmol/L (3.4-5.0); TOTAL PROTEIN 5.1 gm/dL (6.4-8.2)
[2017-07-31 12:06] VITALS: BP 128/66; PULSE 99; TEMP 99.4
[2017-07-31 16:17] VITALS: BP 125/79; PULSE 100; TEMP 99.4
[2017-07-31 16:44] LABS: BASO % 0.3 % (0.0-2.0); EOS % 0.6 % (0-4.0); GRAN # 6.1 (1.4-6.5); GRAN % 84.6 % (42.2-75.2); HEMATOCRIT 40.3 % (42.0-52.0); HEMOGLOBIN 13.8 g/dl (13.5-18.0); LYMPH # 0.5 (1.2-3.4); MEAN CELL VOLUME 97 fl (80.0-100.0); MEAN CORPUSCULAR HEMOGLOBIN 33 pg (27.0-31.0); MEAN CORPUSCULAR HGB CONC 34 g/dl (33.0-37.0); MEAN PLATELET VOLUME 12.1 fl (7.4-10.4); MONO # 0.5 (0.1-0.6); MONO % 7.1 % (1.7-9.3); PLATELET COUNT 61 K/mm3 (130-400); RED BLOOD COUNT 4.16 M/mm3 (4.20-5.60); WHITE BLOOD COUNT 7.2 K/mm3 (4.8-10.8)
[2017-07-31 17:15] LABS: ALBUMIN 3.2 gm/dL (3.5-5.0); BILIRUBIN,TOTAL 0.5 mg/dL (0.0-1.0); TOTAL PROTEIN 6.1 gm/dL (6.4-8.2)
[2017-07-31 17:27] LABS: BILIRUBIN UNCONJUGATED 0.1 mg/dL (0.0-1.1); BILIRUBIN,DIRECT 0.4 mg/dL (0.0-0.4)
[2017-07-31 20:00] VITALS: BP 112/69; PULSE 93; TEMP 98.4
[2017-08-01] VITALS (11 sets, daily range): BP systolic 95–137; BP diastolic 54–90; PULSE 70–130; TEMP 97.6–98.9
[2017-08-01 06:42] LABS: BASO % 0.5 % (0.0-2.0); EOS # 0.1 (0.0-0.7); EOS % 1.8 % (0-4.0); GRAN # 4.6 (1.4-6.5); GRAN % 72.7 % (42.2-75.2); HEMATOCRIT 39.9 % (42.0-52.0); HEMOGLOBIN 13.5 g/dl (13.5-18.0); LYMPH % 15.8 % (20.0-51.0); MEAN CELL VOLUME 97 fl (80.0-100.0); MEAN CORPUSCULAR HEMOGLOBIN 33 pg (27.0-31.0); MEAN CORPUSCULAR HGB CONC 34 g/dl (33.0-37.0); MEAN PLATELET VOLUME 12.5 fl (7.4-10.4); MONO # 0.5 (0.1-0.6); MONO % 8.6 % (1.7-9.3); PLATELET COUNT 70 K/mm3 (130-400); RED BLOOD COUNT 4.13 M/mm3 (4.20-5.60); WHITE BLOOD COUNT 6.3 K/mm3 (4.8-10.8)
[2017-08-01 07:11] LABS: ADJUSTED CALCIUM 9.5 mg/dL (8.4-10.2); ALBUMIN 3.1 gm/dL (3.5-5.0); BILIRUBIN,TOTAL 0.5 mg/dL (0.0-1.0); CALCIUM 8.8 mg/dL (8.4-10.2); CREATININE, serum 1.48 mg/dL (0.66-1.25); MAGNESIUM 1.8 mg/dL (1.6-2.3); POTASSIUM 3.8 mmol/L (3.4-5.0); TOTAL PROTEIN 5.8 gm/dL (6.4-8.2)
[2017-08-02 03:41] VITALS: BP 119/76; PULSE 93; TEMP 97.7
[2017-08-02 07:15] VITALS: BP 122/80; PULSE 116; TEMP 98.5
[2017-08-02 07:28] LABS: BASO % 0.4 % (0.0-2.0); EOS # 0.2 (0.0-0.7); EOS % 2.2 % (0-4.0); GRAN % 69.7 % (42.2-75.2); HEMATOCRIT 37.7 % (42.0-52.0); HEMOGLOBIN 12.9 g/dl (13.5-18.0); LYMPH # 1.3 (1.2-3.4); LYMPH % 18.6 % (20.0-51.0); MEAN CELL VOLUME 95 fl (80.0-100.0); MEAN CORPUSCULAR HEMOGLOBIN 33 pg (27.0-31.0); MEAN CORPUSCULAR HGB CONC 34 g/dl (33.0-37.0); MEAN PLATELET VOLUME 11.4 fl (7.4-10.4); MONO # 0.6 (0.1-0.6); MONO % 8.7 % (1.7-9.3); PLATELET COUNT 94 K/mm3 (130-400); RED BLOOD COUNT 3.95 M/mm3 (4.20-5.60); WHITE BLOOD COUNT 7.2 K/mm3 (4.8-10.8)
[2017-08-02 07:50] LABS: CALCIUM 9.2 mg/dL (8.4-10.2); CREATININE, serum 1.52 mg/dL (0.66-1.25); MAGNESIUM 1.7 mg/dL (1.6-2.3); POTASSIUM 3.6 mmol/L (3.4-5.0)
[2017-08-02 11:15] VITALS: BP 124/93; PULSE 106; TEMP 97.6
[2017-08-02] MEDS ORDERED: CARDIZEM 30MG T30 MG PO (14:11)
[2017-08-02] MEDS ORDERED: ELIQUIS 5MG PO (14:11)
[2017-08-02 15:18] VITALS: BP 120/76; PULSE 90; TEMP 97.5
[2017-08-03 13:20] LABS: TOXOPLASMA AB, IGG Negative (Negative); TOXOPLASMA AB, IGM Negative (Negative); TOXOPLASMA IGG VALUE <3 IU/mL (())
== END 2017-08-02 15:50 | disposition home or self-care (01) | DRG 872 ==
LOC: COL.ER 11:33 → MEDICAL 13:25
PROVIDERS: Emergency Medicine; Internal Medicine; Physician Assistant
DX: A41.9 Sepsis, unspecified organism (principal); N02.8 Recurrent and persistent hematuria with other morphologic changes; N17.9 Acute kidney failure, unspecified; E87.2 Acidosis; R65.11 Systemic inflammatory response syndrome (SIRS) of non-infectious origin with acute organ dysfunction; I48.0 Paroxysmal atrial fibrillation; Z86.718 Personal history of other venous thrombosis and embolism; Z79.01 Long term (current) use of anticoagulants; D69.6 Thrombocytopenia, unspecified; I10 Essential (primary) hypertension; E87.6 Hypokalemia
CPT/HCPCS: 99223-AI; 99232-AI; 99233-AI; 99238; J0456; J0696; J2543; J3370; J3420; J3475; J7030; J7040; J7050; J7500; J7512

== ENCOUNTER 2021-03-04 17:54 | Emergency (ER) | payer OTHER, BC ==
[~2021-03-04] VITALS: Ht 175.3 cm; Wt 86.4 kg
[~2021-03-04 17:54] MED LIST changes: +CARDIZEM 30MG T30 MG PO; +ELIQUIS 2.5 PO; +ELIQUIS 5MG PO; +IMURAN 50MG TAB50 MG PO; +LOPRESSOR 225 MG/TAB PO; +PROTONIX 40MG T40 MG PO
[2021-03-04 19:59] LABS: BASO % 0.3 % (0.0-2.0); EOS # 0.1 (0.0-0.7); EOS % 0.7 % (0-4.0); GRAN # 12.3 (1.4-6.5); GRAN % 81.1 % (42.2-75.2); HEMATOCRIT 51.3 % (42.0-52.0); LYMPH # 1.5 (1.2-3.4); LYMPH % 9.8 % (20.0-51.0); MEAN CELL VOLUME 98 fl (80.0-100.0); MEAN CORPUSCULAR HEMOGLOBIN 34 pg (27.0-31.0); MEAN CORPUSCULAR HGB CONC 35 g/dl (33.0-37.0); MEAN PLATELET VOLUME 10.8 fl (7.4-10.4); MONO # 1.2 (0.1-0.6); MONO % 7.6 % (1.7-9.3); PLATELET COUNT 170 K/mm3 (130-400); RED BLOOD COUNT 5.24 M/mm3 (4.20-5.60)
[2021-03-04 20:00] LABS: ALBUMIN 4.4 gm/dL (3.5-5.0); BILIRUBIN,TOTAL 0.5 mg/dL (0.0-1.0); CALCIUM 9.7 mg/dL (8.4-10.2); CREATININE, serum 1.55 (0.66-1.25); POTASSIUM 4.4 mmol/L (3.4-5.0); TOTAL PROTEIN 7.7 gm/dL (6.4-8.2)
[2021-03-04 22:18] VITALS: BP 107/74; PULSE 83; TEMP 99
== END 2021-03-04 23:00 | disposition home or self-care (01) ==
LOC: COL.ER 17:54
PROVIDERS: Nurse Practitioner
DX: S70.02XA Contusion of left hip, initial encounter (principal); S20.211A Contusion of right front wall of thorax, initial encounter; M54.5 Low back pain; I48.91 Unspecified atrial fibrillation; Z79.02 Long term (current) use of antithrombotics/antiplatelets; V23.4XXA Motorcycle driver injured in collision with car, pick-up truck or van in traffic accident, initial encounter
CPT/HCPCS: J3010; J7030; Q9967